=== PATIENT | female | born 1975 | race Asian ===

== ENCOUNTER → 2018-01-24 | Emergency (ER) | payer MEDICARE, MEDICAID ==
[~2018-01-24] VITALS: Ht 157.5 cm; Wt 64.9 kg
--- NOTE | 2018-01-24 19:49 | Emergency Room Report ---
History of Present Illness General Chief Complaint: General Complaint Present Illness HPI 42-year-old female presents to emergency Department complaining of "not feeling right", shakiness and hyperventilation after taking nicotine gum. Patient reports that she broke one piece into for pieces and took one at a time. Patient reports after taking the fourth 1 which would equivocally to one whole piece of gum she had her symptoms shortly after. Patient reports history of anxiety she took Klonopin prior to arrival and states that her symptoms have reduced but not completely subsided at this time. Denies chest pain, palpitations, fevers, chills, sudden onset headache, weakness, difficulty with speech, dizziness or in balance. Allergies: Coded Allergies: CODEINE (Verified Allergy, Unknown, 01/24/18) NITROFURANTOIN (Verified Allergy, Unknown, 01/24/18) PENICILLINS (Verified Allergy, Unknown, 01/24/18) SULFA (SULFONAMIDE ANTIBIOTICS) (Verified Allergy, Unknown, 01/24/18) SULFAMETHOXAZOLE (Verified Allergy, Unknown, 01/24/18) TRIMETHOPRIM (Verified Allergy, Unknown, 01/24/18) Patient History Past Medical History: see triage record, psych hx Past Surgical History: none Pertinent Family History: none Last Menstrual Period: dec 2017 Now: No Reviewed Nursing Documentation: PMH: Agreed; PSxH: Agreed Nursing Documentation-PMH Past Medical History: No History, Except For Review of Systems All Other Systems: negative except mentioned in HPI Physical Exam Vital Signs Date Time Temp Pulse Resp B/P (MAP) Pulse Ox O2 Delivery O2 Flow Rate FiO2 01/24/18 18:12 98.0 66 16 126/82 100 Room Air 98.1 Sp02 EP Interpretation: reviewed, normal General Appearance: no apparent distress, alert, GCS 15, non-toxic Head: normocephalic, atraumatic Eyes: bilateral eye normal inspection, bilateral eye PERRL ENT: hearing grossly normal, normal voice Neck: full range of motion Respiratory: lungs clear, normal breath sounds, speaking full sentences Cardiovascular #1: regular rate, rhythm, normal capillary refill Gastrointestinal: non tender, soft Musculoskeletal: back normal, gait/station normal, normal range of motion, non- tender Neurologic: alert, oriented x3, responsive, motor strength/tone normal, sensory intact, normal gait, speech normal, grossly normal Psychiatric: judgement/insight normal Skin: normal color, no rash, warm/dry, well hydrated Lymphatic: no adenopathy Medical Decision Making PA Attestation Dr. Duke is my supervising Physician whom patient management has been discussed with. Diagnostic Impression: Primary Impression: Adverse drug reaction Qualified Codes: T50.905A - Adverse effect of unspecified drugs, medicaments and biological substances, initial encounter Additional Impression: History of hyperventilation ER Course 42-year-old female presents to emergency Department complaining of "not feeling right", shakiness and hyperventilation after taking nicotine gum. Patient reports that she broke one piece into for pieces and took one at a time. Patient reports after taking the fourth 1 which would equivocally to one whole piece of gum she had her symptoms shortly after. Patient reports history of anxiety she took Klonopin prior to arrival and states that her symptoms have reduced but not completely subsided at this time. Denies chest pain, palpitations, fevers, chills, sudden onset headache, weakness, difficulty with speech, dizziness or in balance. Ddx considered but are not limited to anxiety, MT, PE, asthma, thyroid storm, hyperthyroid, EPS, hyperventilation just to name a few. Vital signs: are WNL, pt. is afebrile H&PE are most consistent with adverse reaction to nicotine gum. pt. is NAD, non- toxic in appearance. ORDERS: none required at this time, the diagnosis is clinical ED INTERVENTIONS: - Observation - Pt. continues to be NAD, with normal VS. Stable for close outpatient follow up - ED return precautions given DISCHARGE: At this time pt. is stable for d/c to home. Will provide printed patient care instructions, and any necessary prescriptions. Care plan and follow up instructions have been discussed with the patient prior to discharge. Last Vital Signs Date Time Temp Pulse Resp B/P (MAP) Pulse Ox O2 Delivery O2 Flow Rate FiO2 01/24/18 18:12 98.0 66 16 126/82 100 Room Air 98.1 Disposition: HOME, SELF-CARE Condition: Stable Patient Instructions: Drug Allergy, [id number], Medical Screening Exam Additional Instructions: Take any previously prescribed medications as directed. *Discontinue use of Nicotine gum, until evaluated by your PCP for an alternative method * Follow up with a Primary Care Provider in 3-5 days, even if your symptoms have resolved. --Please review list of primary care clinics, if you do not already have a primary care provider Return sooner to ED if new symptoms occur, or current symptoms become worse. - Please note that this Emergency Department Report was dictated using [facility] and ammonia pump operator technology software, occasionally this can lead to erroneous entry secondary to interpretation by the dictation equipment. Mirna Contreras Jan 24, 2018 19:49
[2018-01-24 20:32] VITALS: BP 125/80
== END | disposition home or self-care (01) ==
LOC: EMR 18:45
DX: R06.4 Hyperventilation (principal); T50.995A Adverse effect of other drugs, medicaments and biological substances, initial encounter; Z88.0 Allergy status to penicillin; Z88.5 Allergy status to narcotic agent; Z88.2 Allergy status to sulfonamides
CPT/HCPCS: 99282